=== PATIENT | female | born 1950 | race Caucasian/White ===

== ENCOUNTER → 2016-08-17 | Outpatient (CLI) | payer MEDICARE, MEDICAID ==
[~2016-08-17] MED LIST: ALEV220C2 PO; ASPI1TAB PO; ATEN100T PO; CALC600T21 PO; D 50CAP PO; FISH100049 PO; HYDR25TAB PO; LEVO175T2 PO; POTA1TAB14 PO; PRAV40TA2 PO; PRIL20CA9 PO
[2016-08-17 17:28] LABS: CREATININE FOR GFR 1.16 MG/DL (0.55-1.02); GLOMERULAR FILTRATION RATE 49.9 (>45)
[2016-08-17 17:40] LABS: DIFF SLIDE NUMBER 118; MEAN CORPUSCULAR HEMOGLOBIN 31.6 pg (27.0-33.0); MEAN CORPUSCULAR HGB CONC 33.9 g/dl (32.0-36.5); MEAN CORPUSCULAR VOLUME 93.3 fl (80.0-96.0); RED CELL DISTRIBUTION WIDTH 13.4 % (11.5-14.5); WHITE BLOOD COUNT 6.9 K/mm3 (4.0-10.0)
[2016-08-17 18:31] LABS: PLATELET COUNT, AUTOMATED 94 k/mm3 (150-450)
[2016-08-17 19:57] LABS: BANDS 9 % (< 11)
== END ==
LOC: M ADAMS 11:15
PROVIDERS: ATTEND Physician Assistant Medical
DX: R10.9 Unspecified abdominal pain (principal); R50.9 Fever, unspecified; R80.9 Proteinuria, unspecified

== ENCOUNTER → 2016-08-27 | Outpatient (REF) | payer MEDICARE, MEDICAID ==
[2016-08-27 18:21] LABS: AMYLASE 53 U/L (25-115)
== END ==
LOC: M LAB REF 16:37
PROVIDERS: ATTEND Nurse Practitioner Adult Health
DX: R10.33 Periumbilical pain (principal)

== ENCOUNTER → 2016-09-11 | Outpatient (CLI) | payer MEDICARE, MEDICAID ==
--- NOTE | 2016-09-11 12:50 | REPMRS ---
Patient History The patient states she has not had a clinical breast exam in over a year. Patient is postmenopausal and has history of thyroid cancer at age 42 and cervical caner at 51. Family history of breast cancer in maternal cousin at age 50 or over and colorectal cancer in brother at age 50 or over. 2 benign excisional biopsies of the right breast, 2006. Digital Woman Screen Mammo: September 11, 2016 - Exam #: [id number] Bilateral CC and MLO view(s) were taken. Technologist: Bertha Vazquez, Technologist Prior study comparison: August 07, 2015, digital woman screen mammo performed at [facility] [place] [facility]. June 22, 2014, digital woman screen mammo performed at [facility] [place] FINDINGS: There are scattered fibroglandular densities. There has been no change in the appearance of the mammogram from the prior studies. There is a mild amount of residual fibroglandular tissue which is fairly symmetric. There is no interval development of dominant mass, architectural distortion, or clustered microcalcification suggestive of malignancy. ASSESSMENT: BI-RADS/ACR category 1 mammogram. Negative. Recommendation Routine screening mammogram in 1 year (for women over age 40). This mammogram was interpreted with the aid of an FDA-approved computer-aided dectection system. Electronically Signed By: Tj Clay MD 09/11/16 [id number]
== END ==
LOC: M WHC 11:26
PROVIDERS: ATTEND Nurse Practitioner Adult Health
DX: Z12.31 Encounter for screening mammogram for malignant neoplasm of breast (principal); Z85.850 Personal history of malignant neoplasm of thyroid; Z85.41 Personal history of malignant neoplasm of cervix uteri

== ENCOUNTER → 2016-10-16 | Outpatient (CLI) | payer MEDICARE, MEDICAID ==
[~2016-10-16] VITALS: Ht 152.4 cm; Wt 86.6 kg
[~2016-10-16] MED LIST changes: +AMLO5TAB2 PO; -CALC600T21 PO; +CALC600T60 PO; +KLOR20PO12 PO; +LIDOCAINE 2% INJ 100 MG/5 ML SDV (FOR ANES.) As Ordered ONE; +METF500T13 PO; +NS 1,000 ML IV ONE; +PROPOFOL 200 MG/20 ML VIAL As Ordered ONE; +RANI15ELUD PO; +fentaNYL 100 MCG/2 ML INJECTION (J3010) As Ordered ONE
--- NOTE | 2016-10-16 11:31 | ROOR ---
Patient Name: Paradise Shearer Procedure Date: 10/16/2016 11:10 AM Date of : 1950 Age: 66 Room: [facility] Gender: Female Note Status: Finalized Procedure: Upper GI endoscopy Indications: Epigastric abdominal pain Providers: Rasta Bourgeois Jr, MD Referring MD: Faina Molina NP Requesting Provider: Medicines: Propofol per Anesthesia Complications: No immediate complications. Procedure: Pre-Anesthesia Assessment: - Prior to the procedure, a History and Physical was performed, and patient medications and allergies were reviewed. The patient is competent. The risks and benefits of the procedure and the sedation options and risks were discussed with the patient. All questions were answered and informed consent was obtained. Patient identification and proposed procedure were verified by the physician and the nurse in the pre-procedure area and in the procedure room. Mental Status Examination: alert and oriented. Airway Examination: normal oropharyngeal airway and neck mobility. Respiratory Examination: clear to auscultation. CV Examination: normal. ASA Grade Assessment: II - A patient with mild systemic disease. After reviewing the risks and benefits, the patient was deemed in satisfactory condition to undergo the procedure. The anesthesia plan was to use moderate sedation / analgesia (conscious sedation). Immediately prior to administration of medications, the patient was re-assessed for adequacy to receive sedatives. The heart rate, respiratory rate, oxygen saturations, blood pressure, adequacy of pulmonary ventilation, and response to care were monitored throughout the procedure. The physical status of the patient was re-assessed after the procedure. The Endoscope was introduced through the mouth, and advanced to the second part of duodenum. The upper GI endoscopy was accomplished without difficulty. The patient tolerated the procedure well. Findings: The upper third of the esophagus, middle third of the esophagus and lower third of the esophagus were normal. A small hiatal hernia was present. Localized mildly erythematous mucosa without bleeding was found in the prepyloric region of the stomach. Biopsies were taken with a cold forceps for histology. The first portion of the duodenum and second portion of the duodenum were normal. Localized mild inflammation characterized by congestion (edema) and erosions was found in the duodenal bulb. The cardia, gastric fundus and gastric body were normal. Impression: - Normal upper third of esophagus, middle third of esophagus and lower third of esophagus. - Small hiatal hernia. - Erythematous mucosa in the prepyloric region of the stomach. Biopsied. - Normal first portion of the duodenum and second portion of the duodenum. - Duodenitis. - Normal cardia, gastric fundus and gastric body. Recommendation: - Discharge patient to home (ambulatory). - Return to my office PRN. Rasta Bourgeois MD Rasta Bourgeois Jr, MD 10/16/2016 11:30:52 AM This report has been signed electronically. Number of Addenda: 0 Note Initiated On: 10/16/2016 11:10 AM Estimated Blood Loss: Estimated blood loss: none.
[2016-10-16 12:00] VITALS: BP 137/74
== END | disposition home or self-care (01) ==
LOC: M OPP 10:43
PROVIDERS: ATTEND Surgery
DX: R10.13 Epigastric pain (principal); K44.9 Diaphragmatic hernia without obstruction or gangrene; K29.80 Duodenitis without bleeding; K31.89 Other diseases of stomach and duodenum; K80.20 Calculus of gallbladder without cholecystitis without obstruction; I10 Essential (primary) hypertension; E78.5 Hyperlipidemia, unspecified; R53.83 Other fatigue; R14.0 Abdominal distension (gaseous); E11.9 Type 2 diabetes mellitus without complications; E03.9 Hypothyroidism, unspecified; R12 Heartburn; Z78.0 Asymptomatic menopausal state; R32 Unspecified urinary incontinence; Z85.850 Personal history of malignant neoplasm of thyroid; Z91.040 Latex allergy status; Z88.3 Allergy status to other anti-infective agents; Z79.82 Long term (current) use of aspirin; Z79.84 Long term (current) use of oral hypoglycemic drugs; Z79.899 Other long term (current) drug therapy; Z80.1 Family history of malignant neoplasm of trachea, bronchus and lung; Z80.0 Family history of malignant neoplasm of digestive organs
CPT/HCPCS: 43239; 88305; J3010

== ENCOUNTER → 2017-11-19 | Outpatient (CLI) | payer MEDICARE, MEDICAID | LOC: M WHC 10:58 | DX: Z12.31 Encounter for screening mammogram for malignant neoplasm of breast (principal) | CPT/HCPCS: 77067 ==

== ENCOUNTER 2018-09-29 10:56 | Day surgery (SDC) | payer MEDICARE, MEDICAID ==
[~2018-09-29] VITALS: Ht 152.4 cm; Wt 83.1 kg
[~2018-09-29 10:56] MED LIST changes: -AMLO5TAB2 PO; +AMLO5TAB6 PO; -ASPI1TAB PO; +ASPI81TA26 PO; +BUPR150T3 PO; +D3 H10002 PO; +FISH1000 PO; +HYDR-2541 PO; +KLOR20TA42 PO; +PANT40TA3 PO; -RANI15ELUD PO; +RANI75SY PO; -fentaNYL 100 MCG/2 ML INJECTION (J3010) As Ordered ONE
[2018-09-29] MEDS ORDERED: fentaNYL 100 MCG/2 ML INJECTION (J3010) As Ordered ONE (12:52)
--- NOTE | 2018-09-29 13:09 | ROOR ---
Patient Name: Paradise Shearer Procedure Date: 09/29/2018 12:50 PM Date of : 1950 Age: 68 Room: [facility] Gender: Female Note Status: Finalized Procedure: Upper Endoscopy + Biopsies Indications: Follow-up of Lindquist's esophagus Providers: García Storm MD Referring MD: Faina Molina NP Requesting Provider: Medicines: Monitored Anesthesia Care Complications: No immediate complications. Procedure: Pre-Anesthesia Assessment: - The heart rate, respiratory rate, oxygen saturations, blood pressure, adequacy of pulmonary ventilation, and response to care were monitored throughout the procedure. The Endoscope was introduced through the mouth, and advanced to the second part of duodenum. The upper GI endoscopy was accomplished without difficulty. The patient tolerated the procedure well. Findings: The Z-line was irregular and was found 35 cm from the incisors. Multiple biopsies were obtained with cold forceps for evaluation to rule out Lindquist's Esophagus randomly at the gastroesophageal junction. A small hiatal hernia was present. No other significant abnormalities were identified in a careful examination of the stomach. The exam of the duodenum was otherwise normal. Impression: - Z-line irregular, 35 cm from the incisors. - Small hiatal hernia. - Multiple biopsies were obtained at the gastroesophageal junction. - The examination was otherwise normal. Recommendation: - Patient has a contact number available for emergencies. The signs and symptoms of potential delayed complications were discussed with the patient. Return to normal activities tomorrow. Written discharge instructions were provided to the patient. - High fiber diet. - Discharge patient to home. - Follow an antireflux regimen. - Continue present medications. - Await pathology results. - Telephone GI clinic for pathology results in 1 week. - Repeat upper endoscopy for surveillance based on pathology results. - Return to referring physician. - The findings and recommendations were discussed with the patient's family. García Storm MD García Storm MD 09/29/2018 1:08:38 PM Electronically signed by García Storm MD Number of Addenda: 0 Note Initiated On: 09/29/2018 12:50 PM Estimated Blood Loss: Estimated blood loss: none.
[2018-09-29 13:29] VITALS: BP 138/76
== END 2018-09-29 13:39 | disposition home or self-care (01) ==
LOC: M OPP 10:56
PROVIDERS: ATTEND Internal Medicine Gastroenterology
DX: K22.70 Barrett's esophagus without dysplasia (principal); K22.8 Other specified diseases of esophagus; K44.9 Diaphragmatic hernia without obstruction or gangrene
CPT/HCPCS: 43239; 88305; J3010

== ENCOUNTER → 2018-11-04 | Outpatient (REF) | payer MEDICARE, MEDICAID ==
[~2018-11-04] MED LIST changes: -LIDOCAINE 2% INJ 100 MG/5 ML SDV (FOR ANES.) As Ordered ONE; -NS 1,000 ML IV ONE; -PROPOFOL 200 MG/20 ML VIAL As Ordered ONE
== END ==
LOC: M LAB REF 12:35
PROVIDERS: ATTEND Nurse Practitioner Adult Health
DX: R51 Headache (principal)

== ENCOUNTER → 2019-03-31 | Outpatient (CLI) | payer MEDICARE, MEDICAID ==
--- NOTE | 2019-03-31 13:47 | REPMRS ---
Patient History The patient states she has not had a clinical breast exam in over a year. Family history of breast cancer at age 50 or over in maternal cousin, colorectal cancer at age 50 or over in brother, prostate cancer under age 50 in maternal uncle. 2 benign excisional biopsies of the right breast, 2006. Digital Woman Screen Mammo: March 31, 2019 - Exam #: [id number] Bilateral CC and MLO view(s) were taken. Technologist: Beverly Gresham, Technologist Prior study comparison: November 19, 2017, bilateral digital woman screen mammo performed at [facility]. September 11, 2016, digital woman screen mammo performed at [facility]. August 07, 2015, digital woman screen mammo performed at [facility]. FINDINGS: There are scattered fibroglandular densities. There are two different needle biopsy marker clips again noted in the right breast unchanged. There has been no change in the appearance of the mammogram from the prior studies. There is a mild amount of scattered fibroglandular density which is fairly symmetric. There is no interval development of dominant mass, architectural distortion, or grouped microcalcification suggestive of malignancy. 3-D tomosynthesis shows no additional findings. Assessment: BI-RADS/ACR category 2 mammogram. Benign Findings. Recommendation Routine screening mammogram of both breasts in 1 year (for women over age 40). This patient's Lifetime Breast Cancer Risk is estimated at 5.3 %. This mammogram was interpreted with the aid of an FDA-approved computer-aided dectection system. Electronically Signed By: Erik Ramsey MD 03/31/19 [id number]
== END ==
LOC: M WHC 11:12
PROVIDERS: ATTEND Nurse Practitioner Adult Health
DX: Z12.31 Encounter for screening mammogram for malignant neoplasm of breast (principal)

== ENCOUNTER → 2019-05-11 | Outpatient (REF) | payer MEDICARE, MEDICAID | LOC: M LAB REF 17:54 | PROVIDERS: ATTEND Nurse Practitioner Adult Health | DX: N39.41 Urge incontinence (principal) ==

== ENCOUNTER → 2020-02-14 | Outpatient (REF) | payer MEDICARE, MEDICAID ==
[~2020-02-14] MED LIST changes: +AMLO1TAB24 PO; -AMLO5TAB6 PO; +PANT40TA29 PO; -PANT40TA3 PO
== END ==
LOC: M LAB REF 12:27
PROVIDERS: ATTEND Nurse Practitioner Adult Health
DX: R32 Unspecified urinary incontinence (principal)

== ENCOUNTER → 2020-06-11 | Outpatient (CLI) | payer MEDICARE, MEDICAID ==
[~2020-06-11] MED LIST changes: +BUPR150T12 PO; -BUPR150T3 PO; +HYDR-3490 PO; -HYDR25TAB PO
--- NOTE | 2020-06-11 11:25 | REPMRS ---
Patient History The patient states she has not had a clinical breast exam in over a year. Family history of breast cancer at age 50 or over in maternal cousin, colorectal cancer at age 50 or over in brother, prostate cancer under age 50 in maternal uncle. 2 benign excisional biopsies of the right breast, 2006. Digital Woman Screen Mammo: June 11, 2020 - Exam #: [id number] Bilateral CC and MLO view(s) were taken. Technologist: Britney Hutchison, Technologist Prior study comparison: March 31, 2019, bilateral digital woman screen mammo performed at [facility]. November 19, 2017, bilateral digital woman screen mammo performed at [facility]. FINDINGS: There are scattered fibroglandular densities. The Volpara volumetric breast density category is:B. There are 2 needle biopsy marker clips in the right breast unchanged. There has been no change in the appearance of the mammogram from the prior studies. There is a mild amount of scattered fibroglandular density which is fairly symmetric. There is no interval development of dominant mass, architectural distortion, or grouped microcalcification suggestive of malignancy. 3-D tomosynthesis shows no additional findings. Assessment: BI-RADS/ACR category 2 mammogram. Benign Findings. Recommendation Routine screening mammogram of both breasts in 1 year (for women over age 40). This patient's [facility] Lifetime Breast Cancer Risk is estimated at 5.0 %. This mammogram was interpreted with the aid of an FDA-approved computer-aided dectection system. Electronically Signed By: Erik Ramsey MD 06/11/20 [id number]
== END ==
LOC: M WHC 10:04
PROVIDERS: ATTEND Internal Medicine
DX: Z12.31 Encounter for screening mammogram for malignant neoplasm of breast (principal)

== ENCOUNTER → 2021-06-19 | Outpatient (CLI) | payer MEDICARE, MEDICAID ==
[~2021-06-19] MED LIST changes: -KLOR20TA42 PO; +POTA-141 PO
== END ==
LOC: M WHC 08:59
PROVIDERS: ATTEND Nurse Practitioner Adult Health
DX: Z12.31 Encounter for screening mammogram for malignant neoplasm of breast (principal)

== ENCOUNTER → 2022-08-22 | Outpatient (CLI) | payer MEDICARE, MEDICAID ==
[~2022-08-22] MED LIST changes: +POTA-298 PO; -POTA1TAB14 PO
== END ==
LOC: M WHC 09:54
PROVIDERS: ATTEND Nurse Practitioner Adult Health
DX: Z12.31 Encounter for screening mammogram for malignant neoplasm of breast (principal); Z13.820 Encounter for screening for osteoporosis; E11.21 Type 2 diabetes mellitus with diabetic nephropathy

== ENCOUNTER 2023-04-06 08:02 | Day surgery (SDC) | payer MEDICARE, MEDICAID ==
[~2023-04-06] VITALS: Ht 154.9 cm; Wt 77.1 kg
[~2023-04-06 08:02] MED LIST changes: +CALC1TAB42 PO; +CLOB0.0526 TOP; +DICL100G10 TOP; +FAMO1TAB11 PO; +FARX1TAB5 PO; +GABA-1171 PO; +GLIP5TAB17 PO; +LEVO-96 PO; +NS 1,000 ML IV ONE; +OMEG10002 PO; +PRAV80TA2 PO
[2023-04-06] MEDS ORDERED: fentaNYL 100 MCG/2 ML INJECTION As Ordered ONE (09:01)
[2023-04-06 09:41] VITALS: TEMP 97.8
[2023-04-06] MEDS ORDERED: LIDOCAINE 2% 100MG/5ML SDV (FOR ANES.) As Ordered ONE (09:46)
[2023-04-06] MEDS ORDERED: propofoL 200 MG/20 ML VIAL As Ordered ONE (09:46)
[2023-04-06 09:58] VITALS: BP 141/63; O2SAT 95
== END 2023-04-06 10:05 | disposition home or self-care (01) ==
LOC: M OPP 08:02
PROVIDERS: ATTEND Internal Medicine Gastroenterology
DX: Z12.11 Encounter for screening for malignant neoplasm of colon (principal); Z80.0 Family history of malignant neoplasm of digestive organs; D12.8 Benign neoplasm of rectum; K57.30 Diverticulosis of large intestine without perforation or abscess without bleeding; K22.70 Barrett's esophagus without dysplasia; K22.89 Other specified disease of esophagus; Z79.52 Long term (current) use of systemic steroids; Z79.82 Long term (current) use of aspirin; Z79.84 Long term (current) use of oral hypoglycemic drugs; Z91.040 Latex allergy status; Z91.041 Radiographic dye allergy status; Z91.048 Other nonmedicinal substance allergy status
CPT/HCPCS: 43239; 45380; 88305; J3010

== ENCOUNTER → 2023-11-23 | Outpatient (CLI) | payer MEDICARE, MEDICAID ==
[~2023-11-23] MED LIST changes: -NS 1,000 ML IV ONE
== END ==
LOC: M WHC 15:37
PROVIDERS: ATTEND Nurse Practitioner Adult Health
DX: Z12.31 Encounter for screening mammogram for malignant neoplasm of breast (principal)

== ENCOUNTER 2024-11-07 08:50 | Observation (INO) | payer MEDICARE, MEDICAID ==
[2024-11-07] VITALS (11 sets, daily range): BP systolic 120–163; BP diastolic 57–73; TEMP 96.1; O2SAT 90–99
[~2024-11-07] VITALS: Ht 152.4 cm; Wt 72.4 kg
[~2024-11-07 08:50] MED LIST changes: +ACETAMINOPHEN 1000MG/100ML IV BAG As Ordered ONE; +CETI-24 PO; +LEVO150T7 PO; +LIDOCAINE 2% 100 MG/5 ML SDV (FOR ANES.) As Ordered ONE; +MIDAZOLAM INJ 2 MG/2 ML VIAL As Ordered ONE; +ONDANSETRON 4MG 2ML VIAL As Ordered ONE; -PRAV40TA2 PO; +PRAV40TA85 PO; -PRAV80TA2 PO; +PRAV80TA75 PO; +ROCURONIUM BROMIDE 50MG/5ML VIAL As Ordered ONE; +SEMA2PEN; +dexAMETHasone 4 MG/ML 1 ML VIAL As Ordered ONE
[2024-11-07] MEDS ORDERED: LR 1,000 ML IV SCH (09:15)
[2024-11-07] MEDS ORDERED: LIDOCAINE 1% SDV 5 ML VIAL SC PRN (09:15)
[2024-11-07 09:40] LABS: PLATELET COUNT, AUTOMATED 168 10^3/uL (150-450)
[2024-11-07] MEDS: ceFAZolin SOD 2 GM IV ONCE IV ONE (10:04)
[2024-11-07] MEDS ORDERED: KETOROLAC 30 MG/ML 1 ML VIAL As Ordered ONE (10:22)
[2024-11-07] MEDS ORDERED: SUGAMMADEX SODIUM 500 MG/5 ML VIAL As Ordered ONE (10:22)
[2024-11-07] MEDS ORDERED: GLYCOPYRROLATE INJ 0.2 MG/ML 2 ML VIAL As Ordered ONE (10:41)
[2024-11-07] MEDS ORDERED: LABETALOL 100 MG/20 ML VIAL As Ordered ONE (10:55)
[2024-11-07] MEDS ORDERED: ONDANSETRON 4MG 2ML VIAL IV PRN ×2 (12:10→12:20)
[2024-11-07] MEDS: LR 1,000 ML IV SCH ×2 (12:10→14:03)
[2024-11-07] MEDS ORDERED: HYDROMORPHONE HCL 0.5 MG/0.5 ML SYRINGE IV PRN (12:10)
[2024-11-07] MEDS: PERCOCET 5MG/325MG TAB PO PRN (14:56)
[2024-11-07] MEDS: KETOROLAC 30 MG/ML 1 ML VIAL IV PRN (18:19)
[2024-11-07] MEDS: PRAVASTATIN 20 MG TAB PO SCH (21:05)
[2024-11-07] MEDS: DOCUSATE SODIUM 100 MG CAPSULE PO SCH (21:06)
[2024-11-07] MEDS: FAMOTIDINE 20 MG TAB PO SCH (21:06)
[2024-11-08 01:47] VITALS: BP 119/58; O2SAT 92
[2024-11-08 10:04] VITALS: BP 114/59; O2SAT 96
[2024-11-08] MEDS ORDERED: IBUP-1022 PO (10:57)
[2024-11-08] MEDS ORDERED: COLA100C5 PO (10:57)
[2024-11-08] MEDS ORDERED: OXYC1TAB23 PO (10:58)
== END 2024-11-08 12:05 | disposition home or self-care (01) ==
LOC: M SDC 08:50 → M RR INP 08:51 → M OBS 13:35
PROVIDERS: ADMIT Specialist; ATTEND Specialist
DX: N81.3 Complete uterovaginal prolapse (principal); N80.03 Adenomyosis of the uterus; D25.0 Submucous leiomyoma of uterus; E11.40 Type 2 diabetes mellitus with diabetic neuropathy, unspecified; E66.9 Obesity, unspecified; Z91.040 Latex allergy status; Z91.048 Other nonmedicinal substance allergy status; Z88.8 Allergy status to other drugs, medicaments and biological substances; Z79.899 Other long term (current) drug therapy; Z79.890 Hormone replacement therapy; Z79.85 Long-term (current) use of injectable non-insulin antidiabetic drugs
CPT/HCPCS: 36415; 57240; 58571; 85027; 86850; 86900; 86901; 88307; 96374; 96376; G0378; J0131; J0665; J0690; J1100; J1596; J1885; J1920; J2250; J2405; J3010; S2900

== ENCOUNTER → 2025-01-16 | Outpatient (CLI) | payer MEDICARE, MEDICAID ==
[~2025-01-16] MED LIST changes: -ACETAMINOPHEN 1000MG/100ML IV BAG As Ordered ONE; +COLA100C5 PO; +IBUP600T42 PO; -LIDOCAINE 2% 100 MG/5 ML SDV (FOR ANES.) As Ordered ONE; -MIDAZOLAM INJ 2 MG/2 ML VIAL As Ordered ONE; -ONDANSETRON 4MG 2ML VIAL As Ordered ONE; +OXYC1TAB23 PO; -ROCURONIUM BROMIDE 50MG/5ML VIAL As Ordered ONE; -dexAMETHasone 4 MG/ML 1 ML VIAL As Ordered ONE
== END ==
LOC: M WHC 08:28
PROVIDERS: ATTEND Nurse Practitioner Adult Health
DX: Z12.31 Encounter for screening mammogram for malignant neoplasm of breast (principal)